=== PATIENT | female | born 1950 | race Caucasian/White ===

== ENCOUNTER → 2016-09-04 | Outpatient (CLI) | payer MEDICARE ==
[~2016-09-04] MED LIST: ALLE24TA PO; ASCO100016 PO; ASPI-99 PO; B-COCAP9 PO; B-COTAB30 PO; BENA25TA8 PO; BIOT2500 PO; CALC600T10 PO; CENTTAB16 PO; CETI10 PO; COQ-100C2 PO; COQ-100C5 PO; DIPH0.052 PO; DIPH1TAB36 PO; FISH1200 PO; HYDR-3580 PO; KRIL300C PO; LORA-373 PO; LORA0.5T PO; MAGN250T3 PO; MAGN400T24 PO; MELO-1 PO; MOBI15TA PO; MULT1TAB PO; OSTETAB2 PO; PROB1CAP12 PO; RANI150T PO; SELE200T2 PO; TRAM50TA PO; ULTR50TA PO; VALA1TAB PO; VITA100017 PO; VITA400C70 PO; [UNRECOGNIZED DRUG - CODE] PO
[2016-09-04 11:53] LABS: URIC ACID 3.9 MG/DL (2.6-6.0)
== END ==
LOC: CLAB 10:47
PROVIDERS: ATTEND Allergy & Immunology
DX: M06.4 Inflammatory polyarthropathy (principal)
CPT/HCPCS: 36415; 82550; 82652; 84550; 86147; 86200; 86803; 86812; 87340

== ENCOUNTER → 2016-09-12 | Outpatient (CLI) | payer MEDICARE ==
[2016-09-12 08:57] LABS: MEAN CELL VOLUME 94.4 FL (80.0-100.0); MEAN CORPUSCULAR HGB CONC 33.9 % (32.0-36.0); PLATELET COUNT 201 TH/MM3 (150-450); RED BLOOD COUNT 3.92 MIL/MM3 (4.00-5.30); RED CELL DISTRIBUTION WIDTH 12.9 % (11.6-17.2); REVIEW FLAG FINAL; WHITE BLOOD COUNT 3.2 TH/MM3 (4.0-11.0)
[2016-09-12 09:52] LABS: ALKALINE PHOSPHATASE 70 U/L (45-117); ALT (GPT) 28 U/L (10-53); ANION GAP 8 MEQ/L (5-15); AST (GOT) 22 U/L (15-37); BICARBONATE 29.6 MEQ/L (21.0-32.0); BLOOD UREA NITROGEN 12 MG/DL (7-18); CHLORIDE 104 MEQ/L (98-107); GLOMERULAR FILTRATION RATE 86 ML/MIN (>89); GLUCOSE,FASTING 85 MG/DL (74-99); HDL CHOLESTEROL 124.9 MG/DL (40.0-60.0); LDL CHOLESTEROL 100 MG/DL (0-99); SODIUM (NA) 142 MEQ/L (136-145); TOTAL BILIRUBIN ADULT 0.4 MG/DL (0.2-1.0)
== END ==
LOC: CLAB 08:36
PROVIDERS: ATTEND Family Medicine
DX: M25.552 Pain in left hip (principal); E78.4 Other hyperlipidemia; L65.9 Nonscarring hair loss, unspecified; K90.0 Celiac disease; M15.0 Primary generalized (osteo)arthritis; M51.26 Other intervertebral disc displacement, lumbar region; M17.0 Bilateral primary osteoarthritis of knee; C50.919 Malignant neoplasm of unspecified site of unspecified female breast
CPT/HCPCS: 36415; 80053; 80061; 84443; 85027

== ENCOUNTER 2016-11-27 08:02 | Inpatient (IN) | payer MEDICARE ==
[~2016-11-27] VITALS: Ht 157.5 cm; Wt 66.3 kg
[2016-11-27] MEDS ORDERED: MELO-1 PO (09:11)
[2016-11-27] MEDS ORDERED: OSTETAB2 PO (09:11)
[2016-11-27] MEDS ORDERED: FISH1200 PO (09:11)
[2016-11-27] MEDS ORDERED: BIOT2500 PO (09:11)
[2016-11-27] MEDS ORDERED: ASCO100016 PO (09:11)
[2016-11-27] MEDS ORDERED: LORA-373 PO (09:11)
[2016-11-27] MEDS ORDERED: CALC600T10 PO (09:11)
[2016-11-27] MEDS ORDERED: MULT1TAB PO (09:11)
[2016-11-27] MEDS ORDERED: DIPH0.052 PO (09:11)
[2016-11-27] MEDS ORDERED: VITA400C70 PO (09:11)
[2016-11-27] MEDS ORDERED: TRAM50TA PO (09:11)
[2016-11-27] MEDS ORDERED: B-COTAB30 PO (09:11)
[2016-11-27] MEDS ORDERED: MAGN400T24 PO (09:11)
[2016-11-27] MEDS ORDERED: COQ-100C5 PO (09:11)
[2016-12-11] MEDS ORDERED: POVIDONE IODINE 5% (ANTISEPSIS KIT) 4 APPLICATIONS EACH NARE PRN (05:45)
[2016-12-11] MEDS ORDERED: METOPROLOL TARTRATE 25 MG TAB PO PRN (05:45)
[2016-12-11] MEDS ORDERED: CHLORHEXIDINE GLUCONATE 4% SOLN 120 ML BTL TOPICAL SCH (05:45)
[2016-12-11] MEDS ORDERED: SODIUM CHLORID 0.9% 500 ML IV PRN (05:45)
[2016-12-11] MEDS ORDERED: INSULIN HUMAN REGULAR 1,000 UNITS/10 ML VIAL SQ PRN (05:45)
[2016-12-11] MEDS ORDERED: CHLORHEXIDINE GLUCONATE 2 % 1 PACK (2 CLOTHS) TOPICAL PRN (05:45)
[2016-12-11] MEDS ORDERED: ceFAZolin 2 GM PREMIX 50 ML IV SCH (05:45)
[2016-12-11] MEDS ORDERED: LACTATED RINGER'S 1000 ML IV PRN (05:45)
[2016-12-11 05:54] VITALS: BP 165/89; PULSE 90; RESP 16; TEMP 98.9; O2SAT 100
[2016-12-11] MEDS ORDERED: LACTATED RINGER'S 1000 ML INJ 1,000 ML IV SCH (06:37)
[2016-12-11] MEDS ORDERED: MIDAZOLAM HCL 2 MG/2 ML VIAL ONE (06:40)
[2016-12-11] MEDS ORDERED: SODIUM CHLORIDE 0.9% FLUSH 5 ML FLUSH IVF PRN ×2 (06:45→10:45)
[2016-12-11] MEDS ORDERED: ONDANSETRON HCL 4 MG/2 ML VIAL IVP PRN (06:45)
[2016-12-11] MEDS ORDERED: MAGNESIUM HYDROXIDE SUSP 30 ML CUP PO PRN ×2 (06:45→10:45)
[2016-12-11] MEDS ORDERED: TRANEXAMIC ACID INJ 0 MG in SODIUM CHLORIDE 0.9% INJ 100 ML IV SCH (06:45)
[2016-12-11] MEDS ORDERED: ACETAMINOPHEN/HYDROcodone 325 MG/7.5 MG TAB PO PRN ×3 (06:45→10:45)
[2016-12-11] MEDS ORDERED: MORPHINE SULFATE 8 MG/ML INJ IV PUSH PRN ×2 (06:45→10:45)
[2016-12-11] MEDS ORDERED: Post-op Orders (for Pharmacy) MISC XX ONE ×2 (06:45→10:45)
[2016-12-11] MEDS ORDERED: KETOROLAC TROMETHAMINE 30 MG/ML (IVP) VIAL IVP SCH (06:45)
[2016-12-11] MEDS ORDERED: BISACODYL 10 MG SUPP PR PRN (06:45)
[2016-12-11] MEDS ORDERED: ZOLPIDEM TARTRATE 5 MG TAB PO PRN ×2 (06:45→10:45)
[2016-12-11] MEDS ORDERED: TRANEXAMIC ACID IV SCH ×3 (07:00→11:00)
[2016-12-11] MEDS ORDERED: SODIUM CHLORIDE 0.9% IV SCH ×3 (07:00→11:00)
[2016-12-11] MEDS ORDERED: EXPAREL PERI-ARTICULAR INJECTION (TOTAL VOL. 60 ML) P-ARTICULR SCH ×2 (07:00)
[2016-12-11] MEDS ORDERED: HEPARIN SODIUM - SQ 10,000 UNITS/ML VIAL ONE ×2 (08:28→08:29)
[2016-12-11] MEDS ORDERED: ASPIRIN EC 81 MG TABEC PO SCH (09:00)
[2016-12-11] MEDS ORDERED: SODIUM CHLORIDE 0.9% FLUSH 5 ML FLUSH IVF SCH (09:00)
[2016-12-11] MEDS ORDERED: ACETAMINOPHEN 1000 MG/100 ML VIAL IV ONE (10:16)
[2016-12-11] MEDS ORDERED: LORazepam 0.5 MG TAB PO PRN (10:45)
[2016-12-11] MEDS ORDERED: BISACODYL 10 MG SUPP RECTAL PRN (10:45)
[2016-12-11] MEDS ORDERED: *HYDROmorphone PF 1 MG VIAL PERIprocedural Use ONLY ONE ×2 (10:53→11:10)
[2016-12-11] MEDS ORDERED: fentaNYL CITRATE 250 MCG/5 ML AMP ONE (10:54)
[2016-12-11] MEDS ORDERED: DO NOT ADM ANY ANTICOAGULANT DRUGS PRN (11:00)
[2016-12-11] MEDS: LACTATED RINGER'S 1000 ML INJ 1,000 ML IV SCH ×2 (11:20→23:05)
[2016-12-11 12:00] VITALS: BP 120/65; PULSE 79; RESP 18; TEMP 97.5; O2SAT 99
[2016-12-11] MEDS ORDERED: ePHEDrine/NS 25 MG/5 ML SYR IV ONE (12:00)
[2016-12-11] MEDS ORDERED: PROPOFOL 200 MG/20 ML AMP IV ONE (12:00)
[2016-12-11] MEDS ORDERED: ONDANSETRON HCL 4 MG/2 ML VIAL IV PUSH ONE (12:00)
[2016-12-11] MEDS ORDERED: PHENYLEPH/NS 1000 MCG/10 ML SYR IV ONE (12:00)
[2016-12-11] MEDS ORDERED: NORMOSOL R INJ 1,000 ML IV ONE (12:00)
[2016-12-11] MEDS: ONDANSETRON HCL 4 MG/2 ML VIAL IVP PRN ×2 (12:43→17:40)
--- NOTE | 2016-12-11 15:30 | RADRPT ---
EXAM DATE/TIME: 12/11/2016 07:14 [place] COMPARISON: No previous studies available for comparison. INDICATIONS : Left hip total anterior arthroplasty. OR. MEDICAL HISTORY : None. SURGICAL HISTORY : None. ENCOUNTER: Initial ACUITY: 1 day PAIN SCORE: Non-responsive. LOCATION: Left hip FINDINGS: The patient is status post a total hip arthroplasty with a bipolar prosthesis. Prosthesis is well-sea gloria. Alignment is anatomic. A fracture is not appreciated. CONCLUSION: Anatomic alignment. Scott Pulliam MD FACR Board Certified Radiologist. This report was verified electronically.
[2016-12-11 16:00] VITALS: BP 141/76; PULSE 101; RESP 16; TEMP 96.1; O2SAT 97
--- NOTE | 2016-12-11 16:45 | PD.CONS ---
HPI Service [facility] Consult Requested By Dr. Daxa Gloria Reason for Consult Medical management Primary Care Physician Dr. Farmer Diagnoses: History of Present Illness This is a 66-year-old female with a history of right hip pain secondary to also arthritis who underwent total hip replacement today by Dr. Daxa Gloria who requested consultation to evaluate and manage multiple medical conditions. Anesthesia record shows she received 1200 mL and EBL of 500 mL. At this time she complains of nausea already given IV Zofran. She has history of anxiety, chronic back pain from lumbar spur and left breast cancer status post lumpectomy and chemotherapy. All other systems reviewed negative Review of Systems Except as stated in HPI: all other systems reviewed are Neg Past Family Social History Allergies: Coded Allergies: [place] (Verified Allergy, Severe, Hives, 12/11/16) Sulfa (Verified Allergy, Severe, HIVES, 12/11/16) Gluten (Verified Allergy, Unknown, WBC DOWN, BASOPHILS UP, GRANULOMA ANNULARE, 12/11/16) Diclofenac (Verified Adverse Reaction, Severe, NAUSEA AND VOMITING, ) Uncoded Allergies: ADHESIVE TAPE (Allergy, Intermediate, BLISTERS, 01/10/06) Past Medical History As previously mentioned Past Surgical History Appendectomy, tubal ligation, bilateral knee surgeries, lumpectomy, axillary node dissection, all pleurectomy, carpal tunnel release, mastopexy Reported Medications Acidophilus, biotin, calcium, Centrum, coQ, lorazepam, magnesium, meloxicam, selenium, tramadol and Tylenol Family History Hypertension and heart disease Social History Quit tobacco use. Drinks alcohol 3-4 times a week Physical Exam Vital Signs Vital Signs Date Time Temp Pulse Resp B/P Pulse Ox O2 Delivery O2 Flow Rate FiO2 12/11/16 12:08 Room Air 12/11/16 12:00 97.5 79 18 120/65 99 12/11/16 11:45 98.4 72 16 113/56 96 Nasal Cannula 2 12/11/16 11:30 70 16 137/60 95 Nasal Cannula 2 12/11/16 11:15 63 16 111/53 99 Nasal Cannula 2 12/11/16 11:00 76 16 131/59 99 Nasal Cannula 2 12/11/16 10:42 98.7 84 16 133/63 99 Nasal Cannula 2 6/26/17 05:54 98.9 90 16 165/89 100 Physical Exam GENERAL: This is a well-nourished, well-developed patient, in no apparent distress. SKIN: No rashes, ecchymoses or lesions. Cool and dry. HEAD: Atraumatic. Normocephalic. No temporal or scalp tenderness. EYES: Pupils equal round and reactive. Extraocular motions intact. No scleral icterus. No injection or drainage. ENT: Nose without bleeding, purulent drainage or septal hematoma. Throat without erythema, tonsillar hypertrophy or exudate. Uvula midline. Airway patent. NECK: Trachea midline. No JVD or lymphadenopathy. Supple, nontender, no meningeal signs. CARDIOVASCULAR: Regular rate and rhythm without murmurs, gallops, or rubs. RESPIRATORY: Clear to auscultation. Breath sounds equal bilaterally. No wheezes , rales, or rhonchi. GASTROINTESTINAL: Abdomen soft, non-tender, nondistended. No guarding. MUSCULOSKELETAL: Extremities without clubbing, cyanosis, or edema.LLE with dry bulky dressing No calf tenderness. Negative Homans sign bilaterally. NEUROLOGICAL: Awake and alert. Cranial nerves II through XII intact. Motor and sensory grossly within normal limits. Five out of 5 muscle strength in all muscle groups. Normal speech. Laboratory EKG tracing interpreted by me with sinus rhythm with sinus arrhythmia CBC remarkable for white count of 4000 hemoglobin 13 platelet count of 208 BMP remarkable for a BUN 12 creatinine of 0.95 urinalysis unremarkable Laboratory Tests Test 12/11/16 05:50 Blood Type A POSITIVE Antibody Screen NEGATIVE Imaging Last 24 hours Impressions Hip X-Ray 12/11/16 0000 Signed Impressions: Service Date/Time: Sunday, December 11, 2016 07:14 - CONCLUSION: Anatomic alignment. Scott Pulliam MD Assessment and Plan Assessment and Plan This is a 66-year-old female with a history of right hip pain secondary to also arthritis who underwent total hip replacement today by Dr. Daxa Gloria who requested consultation to evaluate and manage multiple medical conditions. Anesthesia record shows she received 1200 mL and EBL of 500 mL. Continue postoperative care with pain management with Lortab and IV morphine, wound care , physical therapy, incentive spirometry and pharmacological DVT prophylaxis per orthopedic surgery Nausea secondary to recent surgery and medications. IV Zofran. Monitor for response She has history of anxiety, chronic back pain from lumbar spur and left breast cancer status post lumpectomy and chemotherapy. Stable continue outpatient medications as appropriate Discussed Condition With Patient and Francisco Hill MD Dec 11, 2016 16:45
--- NOTE | 2016-12-11 19:18 | HHI.FF ---
Face to Face Verification Diagnosis: (1) Status post total replacement of left hip Physical Therapy Gait training Hip: Total hip, Protocol: Left, Progress to weight bearing Left LE Weight Bearing: WB as tolerated Left LE Range of Motion: Active ROM Nursing Nursing: Dressing changes Dressing Changes: Daily dressing change, Coverderm/Primapore Additional Instructions Remove steristrips on postop day 14. I have seen patient Zoey Neil on 12/11/16. My clinical findings support the need for the requested home health care services because: Ltd mobility - disease progression Limited ability to care for self High risk of falls I certify that my clinical findings support that this patient is homebound because: Post-op weakness Unsteady gait/balance Unsafe to leave home unassisted Joseph Gloria MD (Charles) Dec 11, 2016 19:18
[2016-12-11] MEDS ORDERED: ASPI-99 PO (19:21)
[2016-12-11 19:23] VITALS: O2SAT 96
[2016-12-11] MEDS: SODIUM CHLORIDE 0.9% FLUSH 10 ML FLUSH IV FLUSH SCH (21:00)
[2016-12-11] MEDS ORDERED: NATURAL PRODUCTS PO SCH (21:00)
[2016-12-11] MEDS ORDERED: BIOTIN 7500 MCG PO SCH (21:00)
[2016-12-11] MEDS ORDERED: CALCIUM/VITAMIN D 250 MG/125 U TAB PO SCH (21:00)
[2016-12-11] MEDS: MULTIVITAMINS/MINERALS THERAPEUTIC TAB PO SCH (21:26)
[2016-12-11 21:30] VITALS: BP 142/66; PULSE 79; RESP 16; TEMP 98.4; O2SAT 98
[2016-12-11] MEDS: CALCIUM/VITAMIN D 250 MG/125 U TAB PO SCH (21:42)
[2016-12-12] MEDS: ONDANSETRON HCL 4 MG/2 ML VIAL IVP PRN (01:57)
[2016-12-12 02:06] VITALS: BP 126/60; PULSE 69; RESP 16; TEMP 97.8; O2SAT 100
[2016-12-12 04:15] VITALS: BP 140/61; PULSE 78; RESP 16; TEMP 98.6; O2SAT 100
--- NOTE | 2016-12-12 06:14 | PD.ORT.PN ---
Subjective Post Op Day #: 1 Subjective Remarks She is doing well with minimal pain. She has been OOB to the [facility] [place]. Distance Walked 5 feet. Objective Vitals Vital Signs Date Time Temp Pulse Resp B/P Pulse Ox O2 Delivery O2 Flow Rate FiO2 12/12/16 04:15 98.6 78 16 140/61 100 12/12/16 02:06 97.8 69 16 126/60 100 12/11/16 20:00 Room Air 12/11/16 19:23 96 21 12/11/16 16:00 96.1 101 16 141/76 97 12/11/16 12:08 Room Air 12/11/16 12:00 97.5 79 18 120/65 99 12/11/16 11:45 98.4 72 16 113/56 96 Nasal Cannula 2 12/11/16 11:30 70 16 137/60 95 Nasal Cannula 2 12/11/16 11:15 63 16 111/53 99 Nasal Cannula 2 12/11/16 11:00 76 16 131/59 99 Nasal Cannula 2 12/11/16 10:42 98.7 84 16 133/63 99 Nasal Cannula 2 I/O 12/11/16 12/11/16 12/11/16 12/12/16 12/12/16 12/12/16 07:00 15:00 23:00 07:00 15:00 23:00 Intake Total 2653 ml 491 ml 261 ml Output Total 1070 ml 120 ml 90 ml Balance 1583 ml 371 ml 171 ml Intake Oral 480 ml 240 ml IV Total 473 ml 251 ml 261 ml Other 1700 ml Output Urine Total 400 ml Drainage Total 170 ml 120 ml 90 ml Estimated Blood Loss 500 ml # Voids 1 3 # Bowel Movements 0 Imaging X-ray looks good. Last 72 hours Impressions Hip X-Ray 12/11/16 0000 Signed Impressions: Service Date/Time: Sunday, December 11, 2016 07:14 - CONCLUSION: Anatomic alignment. Scott Pulliam MD Objective Remarks She is resting comfortably, supine in bed. The neurovascular status is intact. The dressing is dry and intact. Assessment & Plan Ortho Post Op Day #: 1 Problem List: (1) Status post total replacement of left hip Plan: Continue postop care and PT. Assessment and Plan Condition: Good. Orthopaedically stable. DVT prophylaxis: ASA, TEDs, sequentials. Discharge plans : Home with [facility]. Has appointment. Rx [place] 7.5/325 Joseph Gloria MD (Charles) Dec 12, 2016 06:14
[2016-12-12 08:00] VITALS: BP 129/66; PULSE 81; RESP 16; TEMP 98.5; O2SAT 99
[2016-12-12 08:16] LABS: HEMATOCRIT 30.7 % (35.0-46.0); REVIEW FLAG FINAL
[2016-12-12] MEDS ORDERED: NON-FORMULARY DRUG (Omega-3 Fatty Acids (Fish Oil 1200 mg) 1 CAP) PO SCH (09:00)
[2016-12-12] MEDS: SODIUM CHLORIDE 0.9% FLUSH 10 ML FLUSH IV FLUSH SCH ×2 (09:00→20:21)
[2016-12-12] MEDS ORDERED: COENZYME Q10 100 MG PO SCH (09:00)
[2016-12-12] MEDS: VITAMIN E 400 UNIT CAP PO SCH (09:08)
[2016-12-12] MEDS: VITAMIN B CMPLX/VITC/FOLIC AC CAP PO SCH (09:08)
[2016-12-12] MEDS: MULTIVITAMINS/MINERALS THERAPEUTIC TAB PO SCH ×2 (09:09→20:22)
[2016-12-12] MEDS: ASCORBIC ACID 500 MG TAB PO SCH (09:10)
[2016-12-12] MEDS: ASPIRIN EC 81 MG TABEC PO SCH (09:10)
[2016-12-12] MEDS: CALCIUM/VITAMIN D 250 MG/125 U TAB PO SCH ×2 (09:10→20:22)
[2016-12-12] MEDS: MAGNESIUM OXIDE 400 MG TAB PO SCH (09:10)
[2016-12-12 12:00] VITALS: BP 145/78; PULSE 74; RESP 17; TEMP 97.7; O2SAT 100
[2016-12-12] MEDS: ACETAMINOPHEN/HYDROcodone 325 MG/7.5 MG TAB PO PRN ×3 (12:09→22:01)
--- NOTE | 2016-12-12 15:05 | HHI.PR ---
Subjective Remarks Follow-up hip surgery. States she is doing okay no more nausea. Hemoglobin down to 10 denies dizziness, weakness chest pain and shortness of breath. Seen with . Discussed with RN Objective Vitals Vital Signs Date Time Temp Pulse Resp B/P Pulse Ox O2 Delivery O2 Flow Rate FiO2 12/12/16 12:00 97.7 74 17 145/78 100 12/12/16 08:00 98.5 81 16 129/66 99 12/12/16 04:15 98.6 78 16 140/61 100 12/12/16 02:06 97.8 69 16 126/60 100 12/11/16 23:10 Room Air 12/11/16 21:30 98.4 79 16 142/66 98 12/11/16 20:00 Room Air 12/11/16 19:23 96 21 12/11/16 16:00 96.1 101 16 141/76 97 I/O 12/11/16 12/11/16 12/11/16 12/12/16 12/12/16 12/12/16 07:00 15:00 23:00 07:00 15:00 23:00 Intake Total 2653 ml 491 ml 741 ml Output Total 1070 ml 120 ml 90 ml Balance 1583 ml 371 ml 651 ml Intake Oral 480 ml 240 ml 480 ml IV Total 473 ml 251 ml 261 ml Other 1700 ml Output Urine Total 400 ml Drainage Total 170 ml 120 ml 90 ml Estimated Blood Loss 500 ml # Voids 1 3 4 # Bowel Movements 0 0 Result Diagram: 12/12/16 0758 Imaging Last Impressions Hip X-Ray 12/11/16 0000 Signed Impressions: Service Date/Time: Sunday, December 11, 2016 07:14 - CONCLUSION: Anatomic alignment. Scott Pulliam MD Objective Remarks GENERAL: This is a well-nourished, well-developed patient, in no apparent distress. SKIN: No rashes, ecchymoses or lesions. Cool and dry. HEAD: Atraumatic. Normocephalic. No temporal or scalp tenderness. EYES: Pupils equal round and reactive. Extraocular motions intact. No scleral icterus. No injection or drainage. ENT: Nose without bleeding, purulent drainage or septal hematoma. Throat without erythema, tonsillar hypertrophy or exudate. Uvula midline. Airway patent. NECK: Trachea midline. No JVD or lymphadenopathy. Supple, nontender, no meningeal signs. CARDIOVASCULAR: Regular rate and rhythm without murmurs, gallops, or rubs. RESPIRATORY: Clear to auscultation. Breath sounds equal bilaterally. No wheezes , rales, or rhonchi. GASTROINTESTINAL: Abdomen soft, non-tender, nondistended. No guarding. MUSCULOSKELETAL: Extremities without clubbing, cyanosis, or edema.LLE with dry bulky dressing No calf tenderness. Negative Homans sign bilaterally. NEUROLOGICAL: Awake and alert. Cranial nerves II through XII intact. Motor and sensory grossly within normal limits. Five out of 5 muscle strength in all muscle groups. Normal speech. A/P Assessment and Plan This is a 66-year-old female with a history of right hip pain secondary to osteoarthritis who underwent total hip replacement by Dr. Daxa Gloria who requested consultation to evaluate and manage multiple medical conditions. Anesthesia record shows she received 1200 mL and EBL of 500 mL. stable. Continue postoperative care with pain management with Lortab and IV morphine, wound care, physical therapy, incentive spirometry and pharmacological DVT prophylaxis per orthopedic surgery Nausea secondary to recent surgery and medications. Improved. IV Zofran. Postoperative anemia secondary to acute blood loss. Asymptomatic. Monitor blood counts. She has history of anxiety, chronic back pain from lumbar spur and left breast cancer status post lumpectomy and chemotherapy. Stable continue outpatient medications as appropriate Discharge Planning Discharge with home health care when cleared by orthopedic surgery Francisco Hill MD Dec 12, 2016 15:05
[2016-12-12 16:00] VITALS: BP 123/80; PULSE 82; RESP 17; TEMP 96.7; O2SAT 100
[2016-12-12 19:50] VITALS: BP 131/66; PULSE 81; RESP 16; TEMP 98.6; O2SAT 99
[2016-12-12] MEDS: DOCUSATE SODIUM 100 MG CAP PO SCH (20:21)
[2016-12-12] MEDS ORDERED: DOCUSATE SODIUM 100 MG CAP PO SCH (21:00)
[2016-12-12] MEDS: LACTATED RINGER'S 1000 ML INJ 1,000 ML IV SCH (23:35)
[2016-12-13 00:10] VITALS: BP 114/58; PULSE 86; RESP 16; TEMP 98.1; O2SAT 97
[2016-12-13 04:30] VITALS: BP 129/81; PULSE 82; RESP 16; TEMP 97; O2SAT 97
[2016-12-13] MEDS: ACETAMINOPHEN/HYDROcodone 325 MG/7.5 MG TAB PO PRN ×2 (04:48→09:54)
--- NOTE | 2016-12-13 06:53 | PD.ORT.PN ---
Subjective Post Op Day #: 2 Subjective Remarks She is doing well with minimal pain yesterday. She has been OOB to the bathroom. Distance Walked 80 feet with PT. Objective Vitals Vital Signs Date Time Temp Pulse Resp B/P Pulse Ox O2 Delivery O2 Flow Rate FiO2 12/13/16 05:52 18 12/13/16 04:30 97.0 82 16 129/81 97 12/13/16 00:10 98.1 86 16 114/58 97 12/12/16 19:50 98.6 81 16 131/66 99 12/12/16 16:00 96.7 82 17 123/80 100 12/12/16 12:00 97.7 74 17 145/78 100 12/12/16 08:00 98.5 81 16 129/66 99 I/O 12/12/16 12/12/16 12/12/16 12/13/16 12/13/16 12/13/16 06:59 14:59 22:59 06:59 14:59 22:59 Intake Total 741 ml 1440 ml 720 ml Output Total 90 ml 980 ml 20 ml Balance 651 ml 460 ml 700 ml Intake Oral 480 ml 1440 ml 720 ml IV Total 261 ml Output Urine Total 900 ml Drainage Total 90 ml 80 ml 20 ml # Voids 4 8 4 # Bowel Movements 0 0 0 Result Diagram: 12/12/16 0758 Imaging X-ray looks good. Last 72 hours Impressions Hip X-Ray 12/11/16 0000 Signed Impressions: Service Date/Time: Sunday, December 11, 2016 07:14 - CONCLUSION: Anatomic alignment. Scott Pulliam MD Objective Remarks She is resting comfortably, supine in bed. The neurovascular status is intact. The dressing is dry and intact. There is no erythema or induration. Assessment & Plan Ortho Post Op Day #: 2 Problem List: (1) Status post total replacement of left hip Plan: Continue postop care and PT. Assessment and Plan Condition: Good. Orthopaedically stable. DVT prophylaxis: ASA, TEDs, sequentials. Discharge plans : Home with [facility]. Has appointment. Rx [place] 7.5/325 Joseph Gloria MD (Charles) Dec 13, 2016 06:53
[2016-12-13 07:27] LABS: HEMATOCRIT 24.8 % (35.0-46.0); REVIEW FLAG FINAL
[2016-12-13] MEDS ORDERED: HYDR-3580 PO (07:29)
[2016-12-13 07:32] VITALS: BP 110/52; PULSE 74; RESP 17; TEMP 97.5; O2SAT 99
[2016-12-13 09:00] VITALS: O2SAT 98
[2016-12-13] MEDS: VITAMIN B CMPLX/VITC/FOLIC AC CAP PO SCH (09:10)
[2016-12-13] MEDS: CALCIUM/VITAMIN D 250 MG/125 U TAB PO SCH (09:10)
[2016-12-13] MEDS: ASPIRIN EC 81 MG TABEC PO SCH (09:10)
[2016-12-13] MEDS: DOCUSATE SODIUM 100 MG CAP PO SCH (09:10)
[2016-12-13] MEDS: ASCORBIC ACID 500 MG TAB PO SCH (09:10)
[2016-12-13] MEDS: MULTIVITAMINS/MINERALS THERAPEUTIC TAB PO SCH (09:11)
[2016-12-13] MEDS: MAGNESIUM OXIDE 400 MG TAB PO SCH (09:11)
[2016-12-13] MEDS: VITAMIN E 400 UNIT CAP PO SCH (09:11)
[2016-12-13] MEDS: SODIUM CHLORIDE 0.9% FLUSH 10 ML FLUSH IV FLUSH SCH (09:11)
[2016-12-13] MEDS: LACTATED RINGER'S 1000 ML INJ 1,000 ML IV SCH (09:13)
--- NOTE | 2016-12-13 10:13 | MP ---
cc: Joseph LUCAS. DATE OF SURGERY 12/11/2016 PREOPERATIVE DIAGNOSIS Primary osteoarthritis left hip. POSTOPERATIVE DIAGNOSIS Primary osteoarthritis left hip. OPERATION PERFORMED Left total hip arthroplasty with [place] prosthesis using a direct anterior approach. SURGEON Scarlet Lucas MD ANESTHESIA General endotracheal with supplemental local INDICATIONS AND FINDINGS This 66-year-old woman has had left hip pain which has been progressive over the past 18 months or more. This has become disabling in activities of daily living. She is able to walk about 30 minutes before stopping because of pain. She has groin pain and lateral hip pain with radiation into the thigh. She has difficulty with stairs and moving the hip into position such as abduction. She has been taking anti-inflammatory agents, analgesics and has an intra-articular corticosteroids without benefit. Ambulatory aids did not help. Physical findings showed limitation of motion of the hip with tenderness on motion. X-rays show significant arthritis in the hip with loss of articular cartilage to [id number] with eburnation and osteophytes. OPERATIVE FINDINGS Showed severe osteoarthritis in the right hip with loss of articular cartilage to [id number]. There were osteophytes noted as well as eburnation. The prosthesis used was a [place] prosthesis with the acetabular component being a titanium cluster cup size 48 mm outer diameter with a 0 degrees 32-mm inner diameter shell of X3 polyethylene. The femoral component was a size 4 x 127 degree neck angle Accolade II femoral component with the head being a -4 mm, offset 32 mm diameter Biolox Delta head. PROCEDURE The patient was brought to the clean-air operating suite and a general anesthetic was administered. After positioning the patient and placing her in a supine position on the operating table, both hips and operative areas were prepped with alcohol, Hibiclens and Chloraprep. She received prophylactic antibiotic in the form of Ancef on arrival in the operating room. She also received tranexamic acid. The hips were then draped in the usual manner with both hips draped free. An appropriate time-out procedure was carried out. The incision was marked and started at about two fingerbreadths posterior and inferior to the anterior superior iliac spine and was taken distally approximately 15 cm towards the fibular head. The incision was deepened through the subcutaneous tissues to the tensor fascia monica which was identified. The fascia monica was opened. Careful dissection was carried out medial to the tensor. The depths of the tensor sheath were opened longitudinally. Bleeders were identified and cauterized or tied with 2-0 Vicryl ties. The anterior capsular fat was debrided. With retractors in place, a longitudinal incision was made along the capsule. An anterior capsulectomy was then carried out. After this had been accomplished, the femoral neck was transected at the appropriate level verified by C-arm fluoroscopy. A secondary cut was made more proximal. This intervening piece was removed followed by removal of the femoral head. With retractors placed about the acetabulum, acetabular reaming was initiated starting at 44 mm and went in 1-mm increments to 47 mm being sure to centralize to the teardrop. At 47 mm, a 48 mm trial was impacted into place and appeared appropriate. This was removed. The 48 mm cluster cup was then impacted into place and appeared to be appropriate both clinically and radiographically. With this in place, a single screw was used to stabilize this further pre-drilling, sounding and placing a [address]. The 0 degree 32-mm inner diameter X3 polyethylene cup was then impacted into the Tritanium cup. Retractors were removed and attention was directed to the femur. The patient was placed into Trendelenburg and the foot of the table was dropped. The retractors were placed about the proximal femur. The capsulectomy was completed with dissection about the proximal femur. A box osteotome was used to open the canal, followed by the use of a curette to clear the bone from the neck and then identify the canal. Broaching started at size zero and went up to a size four. A trial reduction was carried out with a 127 degree neck angle prosthesis and a -4 mm neck. This appeared excellent. There was no pistoning. The stability was excellent. The motion was excellent. There was no pistoning. The leg lengths were appropriate measured directly. The hip was dislocated. The femoral neck portion was removed followed by removal of the broach. The medullary canal was cleaned with pulse lavage. Local anesthetic was injected throughout the hip with Exparel. The size 4 x 127 degree femoral component was impacted into place and seated appropriately. The -4 mm neck length, 32 mm Biolox Delta head was impacted onto a cleaned and dried trunnion. When this was seated, the hip was reduced. The x-rays showed excellent position and alignment with appropriate appearance of leg length both clinically and radiographically. The stability was excellent. Range of motion was excellent. The remainder of the Exparel was injected. Wound closure then commenced using #1 Vicryl interrupted [id number] sutures for the fascial structures with some areas of Krackow suture. A drain was brought out the inferior portion of the wound. The subcutaneous tissues were closed with 2-0 Vicryl interrupted simple sutures with buried knots. The skin was closed with continuous subcuticular closure of 4-0 Monocryl. The wound was dressed with Steri-Strips followed by a dry dressing, ABD pad and Medipore compression dressing. The patient was transferred from the operating room to the recovery room in satisfactory condition having tolerated the procedure well. Counts were correct. Specimens, none. Estimated blood loss 500 mL. MD ALLAN Reyes/GUILLERMO /10:52 AM /10:04 AM
== END 2016-12-13 10:20 | disposition home health service (06) | DRG 470 ==
LOC: HSDI 12-11 05:08 → N06A 12-11 12:26
PROVIDERS: ADMIT Orthopaedic Surgery; ATTEND Orthopaedic Surgery
PROC: 0SRB04A Replacement of Left Hip Joint with Ceramic on Polyethylene Synthetic Substitute, Uncemented, Open Approach (ICD-10-PCS; principal; 2016-12-11 06:43)
DX: M16.12 Unilateral primary osteoarthritis, left hip (principal); D62 Acute posthemorrhagic anemia; F41.9 Anxiety disorder, unspecified; G89.29 Other chronic pain; M46.06 Spinal enthesopathy, lumbar region; R11.0 Nausea; Z85.3 Personal history of malignant neoplasm of breast; Z92.21 Personal history of antineoplastic chemotherapy; Z87.891 Personal history of nicotine dependence
CPT/HCPCS: 73502; 76000; 85014; 85018; 86850; 86900; 86901; 94150; C1776; C9290; J0131; J0690; J1170; J1644; J2250; J2370; J2405; J3010; J7120

== ENCOUNTER → 2016-11-27 | Outpatient (CLI) | payer MEDICARE ==
[~2016-11-27] MED LIST changes: -ASPI-99 PO; -HYDR-3580 PO
[2016-11-27 09:20] LABS: HEMATOCRIT 39.8 % (35.0-46.0); MEAN CELL VOLUME 96.2 FL (80.0-100.0); MEAN CORPUSCULAR HEMOGLOBIN 31.4 PG (27.0-34.0); MEAN CORPUSCULAR HGB CONC 32.7 % (32.0-36.0); PLATELET COUNT 208 TH/MM3 (150-450); RED BLOOD COUNT 4.14 MIL/MM3 (4.00-5.30); REVIEW FLAG FINAL; WHITE BLOOD COUNT 4.1 TH/MM3 (4.0-11.0)
[2016-11-27 09:34] LABS: APTT (PATIENT) 23.6 SEC (24.3-30.1); PROTHROMBIN TIME - PATIENT 10.5 SEC (9.8-11.6)
[2016-11-27 09:40] LABS: BLOOD, URINE NEG (NEG); GLUCOSE,URINE NEG (NEG); KETONE, URINE NEG (NEG); NITRITE,URINE NEG (NEG); TRANSITIONAL EPI CELLS, URINE <1 /hpf; URINE COLOR YELLOW (YELLW/STRAW)
[2016-11-27 09:41] LABS: COMMENT (UR) CATH-CULT NOT IND; CULTURE IF INDICATED CATH CULTURE NOT IND
[2016-11-27 09:53] LABS: BICARBONATE 29.5 MEQ/L (21.0-32.0)
--- NOTE | 2016-11-28 14:26 | EKG ---
Date Performed: 11/27/2016 Time Performed: 08:18:18 PTAGE: 66 years EKG: Sinus rhythm WITH SINUS ARRHYTHMIA NORMAL ECG Compared to prior tracing no significant change PREVIOUS TRACING : 03/15/2010 12.46 DOCTOR: Zohaib Leon Interpretating Date/Time 11/28/2016 14:25:10
== END ==
LOC: CPRE 07:57
PROVIDERS: ATTEND Orthopaedic Surgery
DX: Z01.810 Encounter for preprocedural cardiovascular examination (principal); Z01.812 Encounter for preprocedural laboratory examination; M79.609 Pain in unspecified limb; M16.12 Unilateral primary osteoarthritis, left hip
CPT/HCPCS: 36415; 80048; 81001; 85027; 85610; 85730; 93005

== ENCOUNTER → 2017-01-10 | Outpatient (CLI) | payer MEDICARE ==
[~2017-01-10] MED LIST changes: -ALLE24TA PO; +ASPI-99 PO; -B-COCAP9 PO; -BENA25TA8 PO; -CENTTAB16 PO; -CETI10 PO; -COQ-100C2 PO; -DIPH1TAB36 PO; +HYDR-3580 PO; -KRIL300C PO; -LORA0.5T PO; -MAGN250T3 PO; -MOBI15TA PO; -PROB1CAP12 PO; -RANI150T PO; -SELE200T2 PO; -ULTR50TA PO; -VALA1TAB PO; -VITA100017 PO; -[UNRECOGNIZED DRUG - CODE] PO
[2017-01-10 10:08] LABS: HEMATOCRIT 33.1 % (35.0-46.0); MEAN CELL VOLUME 96.4 FL (80.0-100.0); MEAN CORPUSCULAR HEMOGLOBIN 32.6 PG (27.0-34.0); MEAN CORPUSCULAR HGB CONC 33.9 % (32.0-36.0); PLATELET COUNT 180 TH/MM3 (150-450); RED BLOOD COUNT 3.44 MIL/MM3 (4.00-5.30); RED CELL DISTRIBUTION WIDTH 13.1 % (11.6-17.2); REVIEW FLAG FINAL; WHITE BLOOD COUNT 3.7 TH/MM3 (4.0-11.0)
[2017-01-10 10:34] LABS: CHLORIDE 106 MEQ/L (98-107); POTASSIUM 3.7 MEQ/L (3.5-5.1); SODIUM (NA) 139 MEQ/L (136-145)
[2017-01-10 11:07] LABS: ALT (GPT) 19 U/L (10-53); ANION GAP 6 MEQ/L (5-15); AST (GOT) 17 U/L (15-37); BICARBONATE 26.6 MEQ/L (21.0-32.0); BLOOD UREA NITROGEN 12 MG/DL (7-18); GLOMERULAR FILTRATION RATE 93 ML/MIN (>89); GLUCOSE,FASTING 95 MG/DL (74-99)
[2017-01-10 11:17] LABS: ALKALINE PHOSPHATASE 87 U/L (45-117); HDL CHOLESTEROL 109.9 MG/DL (40.0-60.0); LDL CHOLESTEROL 120 MG/DL (0-99); TOTAL BILIRUBIN ADULT 0.4 MG/DL (0.2-1.0)
== END ==
LOC: CLAB 09:40
PROVIDERS: ATTEND Family Medicine
DX: M25.552 Pain in left hip (principal); E78.4 Other hyperlipidemia; C50.919 Malignant neoplasm of unspecified site of unspecified female breast; L65.9 Nonscarring hair loss, unspecified; K90.0 Celiac disease; M51.26 Other intervertebral disc displacement, lumbar region; M17.0 Bilateral primary osteoarthritis of knee
CPT/HCPCS: 36415; 80053; 80061; 84443; 85027

== ENCOUNTER → 2017-06-05 | Outpatient (CLI) | payer MEDICARE ==
[~2017-06-05] MED LIST changes: -ASCO100016 PO; +ASCO100029 PO; -ASPI-99 PO; +ASPI1TAB56 PO; -LORA-373 PO; +LORA0.5T PO; -MELO-1 PO; +MELO15TA20 PO
[2017-06-05 11:27] LABS: HEMATOCRIT 36.5 % (35.0-46.0); MEAN CELL VOLUME 97.7 FL (80.0-100.0); MEAN CORPUSCULAR HEMOGLOBIN 33.7 PG (27.0-34.0); MEAN CORPUSCULAR HGB CONC 34.5 % (32.0-36.0); PLATELET COUNT 207 TH/MM3 (150-450); RED BLOOD COUNT 3.74 MIL/MM3 (4.00-5.30); RED CELL DISTRIBUTION WIDTH 13.1 % (11.6-17.2); REVIEW FLAG FINAL
[2017-06-05 12:03] LABS: ALT (GPT) 29 U/L (10-53); ANION GAP 9 MEQ/L (5-15); AST (GOT) 25 U/L (15-37); BICARBONATE 27.7 MEQ/L (21.0-32.0); BLOOD UREA NITROGEN 14 MG/DL (7-18); CHLORIDE 103 MEQ/L (98-107); GLOMERULAR FILTRATION RATE 94 ML/MIN (>89); GLUCOSE,FASTING 92 MG/DL (74-99); POTASSIUM 3.7 MEQ/L (3.5-5.1); SODIUM (NA) 140 MEQ/L (136-145)
[2017-06-05 12:14] LABS: ALKALINE PHOSPHATASE 76 U/L (45-117); HDL CHOLESTEROL 147.2 MG/DL (40.0-60.0); LDL CHOLESTEROL 102 MG/DL (0-99); TOTAL BILIRUBIN ADULT 0.5 MG/DL (0.2-1.0)
== END ==
LOC: CLAB 10:53
PROVIDERS: ATTEND Family Medicine
DX: E78.4 Other hyperlipidemia (principal); C50.919 Malignant neoplasm of unspecified site of unspecified female breast; L65.9 Nonscarring hair loss, unspecified; K90.0 Celiac disease; M15.0 Primary generalized (osteo)arthritis; M51.26 Other intervertebral disc displacement, lumbar region; M17.0 Bilateral primary osteoarthritis of knee; M13.0 Polyarthritis, unspecified
CPT/HCPCS: 36415; 80053; 80061; 84443; 85027

== ENCOUNTER → 2017-10-10 | Outpatient (CLI) | payer MEDICARE ==
[2017-10-10 09:40] LABS: HEMOGLOBIN 12.9 GM/DL (11.6-15.3); MEAN CELL VOLUME 96.6 FL (80.0-100.0); MEAN CORPUSCULAR HEMOGLOBIN 33.6 PG (27.0-34.0); MEAN CORPUSCULAR HGB CONC 34.8 % (32.0-36.0); MEAN PLATELET VOLUME 8.4 FL (7.0-11.0); PLATELET COUNT 195 TH/MM3 (150-450); RED BLOOD COUNT 3.82 MIL/MM3 (4.00-5.30); RED CELL DISTRIBUTION WIDTH 12.9 % (11.6-17.2); WHITE BLOOD COUNT 3.7 TH/MM3 (4.0-11.0)
== END ==
LOC: CLAB 09:08
PROVIDERS: ATTEND Family Medicine
DX: E78.4 Other hyperlipidemia (principal); C50.919 Malignant neoplasm of unspecified site of unspecified female breast; L65.9 Nonscarring hair loss, unspecified; K90.0 Celiac disease; M51.26 Other intervertebral disc displacement, lumbar region; M17.0 Bilateral primary osteoarthritis of knee
CPT/HCPCS: 36415; 85027